=== PATIENT | female | born 1990 | race Two or more races ===

== ENCOUNTER 2020-08-06 13:19 | Emergency (ER) | payer OTHER, SELFPAY ==
--- NOTE | ~2020-08-06 | US_ITS ---
EXAMINATION: US venous doppler [facility] DATE: 08/06/2020 14:01 INDICATION: Left lower limb swelling. TECHNIQUE: Grayscale ultrasound images without and with compression and Doppler ultrasound images of the left lower extremity veins were obtained. COMPARISON: None. FINDINGS: The visualized portions of left common femoral vein, profunda (deep) femoral vein, femoral vein, popl iteal vein, peroneal veins, posterior tibial veins, and greater saphenous vein outflow are patent. IMPRESSION: 1. No deep venous thrombosis. Reviewed, dictated and finalized at location A.
--- NOTE | ~2020-08-06 | CT_ITS ---
EXAMINATION: CT lumbar spine wo con DATE: 08/06/2020 15:17 INDICATION: Low back pain, radiating down left leg TECHNIQUE: Computed tomography (CT) of the lumbar spine was performed without intravenous contrast. A utomated exposure control and iterative reconstruction technique were employed. Exam dose: 1042.92 m Gy-cm total exam DLP. COMPARISON: None FINDINGS: There is a transitional first sacral vertebra sacralization pseudoarthrosis on the left; th is may be a source of chronic low back pain. No fracture or bone destruction, spondylolysis or spondylolisthesis. Lumbar and lumbosacral interspac es appear well preserved.. 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 Reviewed, dictated and finalized at location A. IMPRESSION: Transitional first sacral vertebra with sacralization/pseudoarthro sis on the left
[2020-08-06 13:23] VITALS: BP 120/67; PULSE 76; RESP 16; TEMP 36.6; O2SAT 100
--- NOTE | 2020-08-06 13:52 | PC.NURSE ---
Pt to ultrasound.
--- NOTE | 2020-08-06 13:52 | PC.NURSE ---
unable to draw labs due to pt taken to us
[2020-08-06 14:32] LABS: Basophils Percent Auto 0.6 % (0.2-1.2); Eosinophils Absolute Auto 0.1 K/mm3 (0-0.3); Eosinophils Percent Auto 1.1 % (0-4.4); Hemoglobin 12.2 g/dL (12.0-15.0); Immature Granulocyte Absolute 0.01 K/mm3 (0.00-0.031); Immature Granulocyte Percent A 0.2 % (0-0.5); Lymphocytes Absolute Auto 2.47 K/mm3 (0.9-3.2); Lymphocytes Percent Auto 37.5 % (18.3-44.2); Mean Corpuscular Hemoglobin 28.4 pg (26-34); Mean Corpuscular Volume 86.2 fl (80-100); Mean Platelet Volume 10.9 fl (7.4-10.4); Monocytes Absolute Auto 0.4 K/mm3 (0.1-0.6); Monocytes Percent Auto 5.3 % (2.6-8.5); Neutrophils Absolute Auto 3.7 K/mm3 (1.3-6.7); Neutrophils Percent Auto 55.3 % (45.5-73.1); Platelet Count Result 244 k/mm3 (150-375); Red Blood Count 4.29 M/mm3 (4.2-5.4); Red Cell Distribution Width 13.4 % (11.5-14.5); White Blood Count 6.6 K/mm3 (4.5-10.0)
[2020-08-06 14:42] LABS: Carbon Dioxide 25 mmol/L (22-30); Chloride 106 mmol/L (98-107); Magnesium 1.8 mg/dL (1.6-2.3); Potassium 4.1 mmol/L (3.4-5.0); Sodium 137 mmol/L (137-145)
[2020-08-06 14:43] LABS: Alanine Aminotransferase 10 U/L (4-35); Albumin Level 4.2 g/dL (3.5-5.1); Alkaline Phosphatase 33 U/L (38-126); Anion Gap 6 mmol/L (8-16); Aspartate Amino Transferase 20 U/L (14-36); Bilirubin,Total 0.2 mg/dL (0.2-1.3); Blood Urea Nitrogen 12 mg/dL (7-17); Calcium 9.1 mg/dL (8.4-10.2); Estimated CRCL calculation 99 ml/min; Estimated Glomerular Filt Rate > 60; Glucose 99 mg/dL (65-105)
--- NOTE | 2020-08-06 15:12 | PC.NURSE ---
Pt to CT.
--- NOTE | 2020-08-06 16:22 | ED.LOWEXIN ---
HPI - Extremity Injury (Lower) General Chief Complaint: Extremity Injury, Lower Stated Complaint: numbness in my leg/hotspot in my leg Time Seen by Provider: 08/06/20 13:22 Source: patient Mode of arrival: ambulatory Limitations: no limitations History of Present Illness HPI Narrative: THis patient is a 30 year old female who presents with complaint in numbness to her left leg. She reports starting 1 week ago she developed tingling to her left leg. She reports initially she felt warmness to left posterior thigh. That has resolved. She has also been feeling intermittent tingling and numbness to her ankle and toes. She denies weakness, fever or chills. She reports chronic back pain due to previous injuries. She is unable to state if pain is better or worsen. She does not know any exacerbating factors. She denies left arm weakness, headache or dizziness. She reports her family told her to get checked for DVT. She denies chest pain or sob. Related Data Home Medications Medication Instructions Recorded Confirmed No Home Medications 08/06/20 08/06/20 Allergies Allergy/AdvReac Type Severity Reaction Status Date / Time No Known Allergies Allergy Verified 08/06/20 13:19 Review of Systems Review of Systems: All systems reviewed & are unremarkable except as noted in HPI and below PMFSH Past Medical History Medical History (Updated 08/06/20 @ 16:30 by Sonja García MD) Patient denies medical problems Surgical History Surgical History (Updated 08/06/20 @ 16:27 by Sonja García MD) No pertinent past surgical history Family History Family History (System 11/02/19 @ 14:22 by Keisha Espino) Other Diabetes mellitus Unknown family medical history Social History Social History (System 11/02/19 @ 14:22 by Keisha Espino) Smoking status: Never smoker Second hand tobacco smoke exposure: No Substance use: former Gender identity (if verbalized by the patient): Female Spiritual care concerns: No Exam Const: General: no acute distress and alert Orientation/consciousness: patient oriented x3 HENMT: Head: normocephalic and atraumatic Face and sinus: face symmetric Mouth: Yes Normal oral and palatal mucosa present, Yes lip normal, Yes oropharynx normal and Yes moist mucous membranes Throat: posterior oropharynx normal, tonsils normal and uvula midline Eyes: Pupils: Equal, round and reactive pupils present EOM: EOMs intact bilaterally Neck: Neck: normal visual inspection Chest: Chest palpation & inspection: normal inspection of the chest Resp: Effort & Inspection: normal respiratory effort and no retractions Auscultation: clear to auscultation bilaterally Cardio: Rate: regular rate Rhythm: regular rhythm Heart sounds: no murmurs Other: bilateral palpable pedal pulse GI: GI Palp: Yes Soft to palpation, No Tenderness to palpation present (GI), No Guarding due to palpation present (GI) and No Rigid due to palpation Back/Spine/Pelvis: Back: no CVA tenderness Thoracic/Lumbar Spine: thoracic and lumbar spine normal to inspection Skin: General skin exam: normal color Rashes: no rashes Neuro: General: patient oriented x3, moves all extremities, no meningeal signs, no focal motor deficits, CN's II-XI intact bilaterally and normal sensation to monofilament Speech: normal speech Gait exam (Neuro): Normal gait present Motor exam (neuro): 5/5 motor strength present throughout Sensory Exam: normal sensation and Normal double simultaneous stimulation for sensation Course Reevaluation(s) Reevaluation #1: I have discussed with patient evaluation and she will need to follow up with PCP Date: 08/06/20 Time: 16:28 Vital Signs Vital signs: Vital Signs Temperature 98 F 08/06/20 13:23 Pulse Rate 76 08/06/20 13:23 Respiratory Rate 16 08/06/20 13:23 Blood Pressure 120/67 08/06/20 13:23 Pulse Oximetry 100 08/06/20 13:23 Temperature 98 F 08/06/20
[2020-08-06 16:56] VITALS: BP 106/69; PULSE 55; RESP 14; O2SAT 99
== END 2020-08-06 16:57 | disposition home or self-care (01) ==
PROVIDERS: Emergency Provider General Practice
DX: R20.2 Paresthesia of skin (principal)
CPT/HCPCS: 36415; 72131; 80053; 81025; 83735; 85025; 93971; 99284

== ENCOUNTER 2022-12-10 08:58 | Outpatient (CLI) | payer OTHER, SELFPAY ==
--- NOTE | ~2022-12-10 | US_ITS ---
EXAMINATION: US pelvic complete DATE: 12/10/2022 09:55 INDICATION: Right lower quadrant pain Comparison:Ultrasound dated 01/16/2011 TECHNIQUE: Multiple transabdominal and endovaginal sonographic images of the pelvis performed. FINDINGS: The uterus measures 8 x 6 x 4.7 cm. The endometrial complex measures 5.5 mm. The right ovary measures 2.4 x 1.8 x 1.9 cm and the left ovary measures 2.9 x 2.1 x 2.3 cm. There ar e small follicles in each ovary. Normal doppler signal in both ovaries. There is no free fluid in the pelvis. There are no abnormal masses seen on either side. IMPRESSION: 1. Unremarkable pelvic ultrasound. Reviewed, dictated and finalized at location L. Y ENGINEER
--- NOTE | ~2022-12-10 | US_ITS ---
Limited Abdominal Sonogram: Real-time sonographic imaging of the right upper quadrant was performed. Clinical History: Abdominal pain Findings: The liver appears normal with no evidence of mass lesion or bile duct dilatation. Main por jack vein demonstrates normal direction of flow. The gallbladder is well distended, and appears normal with no evidence of gallstone or wall thickening. The common bile duct measures 3 mm. The visualize d pancreas, aorta, and IVC are unremarkable. Impression: No significant abnormality seen. Reviewed, dictated and finalized at location . L BIT SHARPENER Impression: No significant abnormality seen.
== END 2022-12-10 08:59 | disposition home or self-care (01) ==
DX: R10.9 Unspecified abdominal pain (principal); R19.00 Intra-abdominal and pelvic swelling, mass and lump, unspecified site
CPT/HCPCS: 76705; 76856

== ENCOUNTER 2023-12-18 14:11 | Outpatient (CLI) | payer OTHER, MEDICAID, SELFPAY ==
--- NOTE | ~2023-12-18 | XR_ITS ---
Clinical Indication: Cough PA and lateral views of the chest: Comparison: None Findings: The lungs are clear, without evidence of focal consolidation or pleural effusion. Cardiome diastinal silhouette is within normal limits. Bones and soft tissues are unremarkable. Impression: Normal chest. Reviewed, dictated and finalized at location . [employer]CH[employer]ICIAN Impression: Normal chest.
[2023-12-18 15:11] LABS: Basophils Absolute Auto 0.1 K/mm3 (0.0-0.1); Eosinophils Absolute Auto 0.2 K/mm3 (0-0.3); Eosinophils Percent Auto 2.6 % (0-4.4); Hematocrit 41.6 % (37.0-47.0); Hemoglobin 13.1 g/dL (12.0-15.0); Immature Granulocyte Absolute 0.02 K/mm3 (0.00-0.031); Immature Granulocyte Percent A 0.3 % (0-0.5); Lymphocytes Absolute Auto 2.31 K/mm3 (0.9-3.2); Lymphocytes Percent Auto 31.5 % (18.3-44.2); Mean Corpuscular HGB Conc 31.5 g/dl (32-36); Mean Corpuscular Hemoglobin 28.1 pg (26-34); Mean Corpuscular Volume 89.1 fl (80-100); Mean Platelet Volume 10.6 fl (7.4-10.4); Monocytes Absolute Auto 0.4 K/mm3 (0.1-0.6); Monocytes Percent Auto 5.7 % (2.6-8.5); Neutrophils Absolute Auto 4.3 K/mm3 (1.3-6.7); Neutrophils Percent Auto 58.9 % (45.5-73.1); Platelet Count Result 241 k/mm3 (150-375); Red Blood Count 4.67 M/mm3 (4.2-5.4); Red Cell Distribution Width 14.5 % (11.5-14.5); White Blood Count 7.3 K/mm3 (4.5-10.0)
[2023-12-18 15:27] LABS: Anion Gap 3 mmol/L (8-16); Blood Urea Nitrogen 18 mg/dL (7-17); Calcium 9.7 mg/dL (8.4-10.2); Carbon Dioxide 29 mmol/L (22-30); Chloride 104 mmol/L (98-107); Estimated Glomerular Filt Rate > 60; Glucose 109 mg/dL (65-110); Potassium 3.9 mmol/L (3.4-5.0); Sodium 136 mmol/L (137-145)
[2023-12-18 15:51] LABS: Iron 75 ug/dL (37-170)
[2023-12-18 16:00] LABS: Percent Iron Saturation 22 % (20-50)
[2023-12-18 16:34] LABS: Folic Acid 19.9 ng/mL (2.76->20)
== END 2023-12-18 14:12 | disposition home or self-care (01) ==
PROVIDERS: PCP Family Medicine; Visit Provider Family Medicine
DX: R25.2 Cramp and spasm (principal); R53.83 Other fatigue; R05.9 Cough, unspecified
CPT/HCPCS: 36415; 71046; 80048; 82607; 82728; 82746; 83540; 83550; 83735; 84443; 85025